=== PATIENT | male | born 1960 | race Caucasian/White ===

== ENCOUNTER 2018-10-21 17:05 | Emergency (ER) | payer SELFPAY ==
[~2018-10-21] VITALS: Ht 172.7 cm; Wt 108.3 kg
[2018-10-21 17:25] VITALS: BP 173/98; PULSE 68; RESP 20; Ht 172.7 cm; Wt 108.3 kg
== END 2018-10-21 18:00 | disposition left against medical advice (07) ==
LOC: FTE 17:05
DX: Z53.21 Procedure and treatment not carried out due to patient leaving prior to being seen by health care provider (principal)

== ENCOUNTER 2018-12-31 10:46 | Day surgery (SDC) | payer OTHER ==
[2018-12-31] VITALS (27 sets, daily range): BP systolic 124–157; BP diastolic 64–99; PULSE 51–92; RESP 12–20; Ht 177.8 cm; Wt 103.6 kg
[~2018-12-31] VITALS: Ht 177.8 cm; Wt 103.6 kg
--- NOTE | 2018-12-31 11:19 | HPN ---
Date/Time of Note Date/Time of Note DATE: 12/31/18 TIME: 11:19 Interval H&P Admission Note Pt. seen H&P reviewed: No system changes BERTHA MANN MD December 31, 2018 11:19
[2018-12-31] MEDS ORDERED: LEVO50TA7 PO (11:20)
[2018-12-31] MEDS ORDERED: LISI-313 PO (11:20)
[2018-12-31] MEDS: LACTATED RINGER'S 1,000 ML IV SCH ×3 (13:15→16:57)
[2018-12-31] MEDS ORDERED: MIDAZOLAM 1 MG/ML 2 ML INJ ONE (14:21)
[2018-12-31] MEDS ORDERED: ROPIVACAINE 0.5 % 30 ML VIAL ONE (14:21)
--- NOTE | 2018-12-31 14:28 | PREAC ---
Date/Time of Note Date/Time of Note DATE: 12/31/18 TIME: 14:27 Anesthesia Eval and Record Evaluation Time Pre-Procedure Interview DATE: 12/31/18 TIME: 14:27 Age 58 Sex male NPO: 8 hrs Preoperative diagnosis L biceps tendon tear Planned procedure L bicep tendon repair Past Medical History Past Medical History: Includes Cardio: HTN Endo: Hypothyroid GI: Obesity Surgery & Anesthesia Issues No known issue Meds Anticoagulation: No Beta Annita within 24 hr: No Reason Beta Annita not given: Pt. not on B-Annita Reported Medications Levothyroxine Sodium* (Levothyroxine Sodium*) 50 Mcg Tablet, 50 MCG PO BEFORE BREAKFAST, #30 TAB 12/31/18 Lisinopril* (Lisinopril*) 5 Mg Tablet, 5 MG PO DAILY, #30 TAB 12/31/18 Current Medications Lactated Ringer's 1,000 ml @ 25 mls/hr Q24H IV Last administered on 12/31/18at 13:15; Admin Dose 25 MLS/HR; Start 12/31/18 at 11:36 Meds reviewed: Yes Allergies Coded Allergies: No Known Allergy (Unverified , 12/31/18) Allergies Reviewed: Yes Labs/Studies Labs Reviewed: Reviewed by anesthesiologist test: N/A Studies: ECG Pre-procedure Exam Last vitals Vital Signs Date Temp Pulse Resp B/P (MAP) Pulse Ox O2 O2 Flow FiO2 Time Delivery Rate 12/31/18 98.1 51 16 138/74 98 Room Air 11:32 (95) Airway: Adequate mouth opening, Adequate thyromental dist Mallampati: Mallampati II Teeth: Abnormal Lung: Normal Heart: Normal ASA Physical Status ASA physical status: 2 Emergency: None Planned Anesthetic Nerve block: Brachial plexus (left) Pre-operative Attestations Prior to commencing anesthesia and surgery, the patient was re-evaluated, there was verification of: *The patient's identity *The results of appropriate recent lab work and preoperative vital signs *The above evaluation not changing prior to induction *Anesthetic plan, risk benefits, alternative and complications discussed with patient/family; questions answered; patient/family understands, accepts and wishes to proceed. ZARA SANTOS December 31, 2018 14:28
[2018-12-31] MEDS ORDERED: DIPHENHYDRAMINE 50 MG INJ IV PRN (14:30)
[2018-12-31] MEDS ORDERED: ALBUTEROL 0.083% (NEB) 2.5 MG/3 ML AMP HHN PRN (14:30)
[2018-12-31] MEDS ORDERED: MEPERIDINE 25 MG INJ IV PRN (14:30)
[2018-12-31] MEDS ORDERED: ONDANSETRON 4 MG INJ IV PRN (14:30)
[2018-12-31] MEDS ORDERED: HYDROmorphONE 1 MG/5 ML IV SYRINGE IV PRN ×3 (14:30)
[2018-12-31] MEDS ORDERED: METOCLOPRAMIDE 10 MG INJ IV PRN (14:30)
[2018-12-31] MEDS ORDERED: FENTAnyl 50 MCG/ML VIAL IV PRN ×2 (14:30)
[2018-12-31] MEDS ORDERED: ROCURONIUM 50 MG INJ ONE ×2 (14:48→16:28)
[2018-12-31] MEDS ORDERED: LIDOCAINE 100 MG SYRINGE ONE ×2 (14:48→16:28)
[2018-12-31] MEDS ORDERED: PROPOFOL 20 ML ONE ×2 (14:48→16:28)
[2018-12-31] MEDS ORDERED: SUCCINYLCHOLINE CHLORIDE 100 MG/5 ML SYG IV ONE ×2 (14:48→16:28)
[2018-12-31] MEDS ORDERED: FENTAnyl 50 MCG/ML VIAL ONE (14:49)
[2018-12-31] MEDS ORDERED: POLYMYXIN/BACITRACIN 1L IRRIG ONE (15:30)
[2018-12-31] MEDS ORDERED: THROMBIN 5000 UNIT VIAL ONE ×2 (15:36→16:19)
[2018-12-31] MEDS ORDERED: CA CHLORIDE 10% 10 ML SYRINGE ONE ×2 (15:36→16:19)
[2018-12-31] MEDS ORDERED: CEFAZOLIN 1 GM INJ ONE (16:28)
[2018-12-31] MEDS ORDERED: SUGAMMADEX SODIUM 200 MG/2 ML VIAL IV ONE (16:28)
--- NOTE | 2018-12-31 17:07 | OPR ---
Date/Time of Note Date/Time of Note DATE: 12/31/18 TIME: 17:06 Operative Report Procedure Date: December 31, 2018 Preoperative Diagnosis Left distal biceps rupture Postoperative Diagnosis Left distal biceps rupture Operation/Procedure Performed Left distal biceps repair with allograft and application of PRP Surgeon Bertha Mann MD Test Worker Aaron Hugo MD Anesthesia Type: general, other (Supraclavicular Block) Anesthesiologist: ZARA SANTOS Tourniquet Time: 72 min Estimated Blood Loss: minimal Transfusion none Specimen none Grafts/Implants Arthrex Amnion and Sree PRP at 5% hct ConMed y-Knot x 2 Complications none Pt Condition Post Procedure: stable Disposition: PACU Indications INDICATIONS: The patient is a 58-year-old gentleman who is status post a left biceps rupture 2-3 mos ago. 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 Risks of anesthesia, deep vein thrombosis and need for reduce future surgery. Patient acknowledged these risk by signing the surgical consent form. Procedure Description Mod 22 - delay in presentation, BMI The patient was met in the preoperative holding area and the correct operative extremity was marked and confirmed with both patient and consent. The patient was brought back to the operative theater, placed supine on the operative table. The patient was given a preoperative supraclavicular block and then the patient was prepped, draped in normal sterile fashion. Everyone in the Operating room agreed it was The correct procedure, extremity and patient. A sterile tourniquet was placed on the upper arm of the operative extremity and tourniquet was brought to 250 mmHg. A transverse incision was made over the distal antecubital fossa and the lateral antebrachial cutaneous nerve was identified and protected. Superficial radial nerve and musculocutaneous nerve was identified and retracted. There was great care taken to avoid any injury to the neurovascular structures. The distal biceps tendon was found to be degenerative and ruptured proximally with significant surrounding scar tissue, just proximal to the antecubital fossa and retrieved and then the pseudotendon sheath was also debrided. The tendon stump was further mobilized and debrided. The radial tuberosity was then exposed by supination of the forearm with the stump further debrided with a rongeur and curet. Two Con Med Y-knot anchors were then placed in a parallel fashion to the radial tuberosity. The Con Med suture was then passed through multiple passes using the modified [place] suture technique, along the lateral middle and medial border of the tendon and then using a tensioning type of repair construct the tendon was then brought back to the radial tuberosity site. The arm was brought into 90 degrees of flexion, where it was tied down in a typical fashion. The wound was irrigated thoroughly and amniotic membrane was then placed over the tendon repair site after viscous PRP had been placed at the tendon repair site. The wound was then closed in layers with 3-0 Monocryl followed by 4-0 monocryl and dermabond. Wounds were dressed with Xeroform, 4 x 4's and placed in a well- padded long arm splint with the arm flexed to 90 degrees and 40 degrees supin ation. 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 Without orthopedic surgical instrument repair specialist during the case, the case would have been significantly more and longer. Thus should be compensated accordingly. MODIFIER 22 NOTE: Given the revision nature of this case and the complexity of debriding multiple massive amount of scar tissue with great care, due to the s ignificant delay in presentation, to avoid any injury to the surrounding neurovascular structures, this case required a great deal complexity and required at least significantly more time in order to manage this revision repair. 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 Given that this case was more complex due to these stated reasons and the nature of the case, it should be awarded a modifier 22. BERTHA MANN MD December 31, 2018 17:07
[2018-12-31] MEDS ORDERED: morphine 10 MG INJ IV PRN (17:30)
--- NOTE | 2019-01-01 07:49 | PAC ---
Date/Time of Note Date/Time of Note DATE: 01/01/19 TIME: 07:48 Post-Anesthesia Notes Post-Anesthesia Note Last documented vital signs Vital Signs Date Temp Pulse Resp B/P (MAP) Pulse Ox O2 O2 Flow FiO2 Time Delivery Rate 12/31/18 98.3 68 17 134/67 95 Room Air 19:02 (89) 12/31/18 2.0 17:14 Activity: WNL Respiratory function: WNL Cardiovascular function: WNL Mental status: Baseline Pain reasonably controlled: Yes Hydration appropriate: Yes Nausea/Vomiting absent: Yes ZARA SANTOS January 01, 2019 07:49
== END 2018-12-31 19:15 | disposition home or self-care (01) ==
LOC: SDS 10:46
PROVIDERS: ATTEND Orthopaedic Surgery
DX: S46.212D Strain of muscle, fascia and tendon of other parts of biceps, left arm, subsequent encounter (principal); X58.XXXD Exposure to other specified factors, subsequent encounter; I10 Essential (primary) hypertension; E03.9 Hypothyroidism, unspecified
CPT/HCPCS: 24342; J0690; J2001; J2250; J2795; J3010; Z7512; Z7610